=== PATIENT | male | born 1965 | race Caucasian/White ===

== ENCOUNTER 2024-11-04 14:30 | Emergency (ER) | payer OTHER, SELFPAY ==
--- NOTE | ~2024-11-04 | XR_ITS ---
EXAM: XR abdomen/kub 1V DATE: 11/04/2024 15:15 HISTORY: uretheral stone . COMPARISON: CT abdomen pelvis 11/04/2024. FINDINGS: Clear lung bases. Normal bowel gas pattern. No organomegaly. Punctate left upper pole and 9 mm left lower pole calcifications. Known punctate right lower pole calcification not visible radiog raphically. 5 mm calcification projecting over the left sacrum in the expected path of the left urete r. Regional bones and soft tissues normal for age. IMPRESSION: 5 mm distal left ureteral stone. Reviewed, dictated and finalized at location K.
--- NOTE | ~2024-11-04 | CT_ITS ---
EXAMINATION: CT abdomen pelvis wo con DATE: 11/04/2024 14:47 INDICATION: Urethral stone TECHNIQUE: Computed tomography (CT) of the abdomen and pelvis was performed without intravenous contr ast. The dose-length product was 243.23 mGy-cm. Automated exposure control and iterative reconstructi on technique were employed. COMPARISON: None. FINDINGS: Lung bases unremarkable. Heart size normal. No significant pleural or pericardial effusion. There is a 4 mm distal left ureteral stone with mild left hydronephrosis and periureteral edema. The re is nonobstructing left nephrolithiasis. There is a punctate nonobstructing right renal stone. The liver, spleen, pancreas, adrenal glands and right kidney are unremarkable. No significant vascula r abnormality. No lymphadenopathy. There are small bone islands in the proximal aspect of the right f emur. Mild lumbar spondylosis. No significant vascular abnormality. No lymphadenopathy. Nonobstructiv e bowel gas pattern. Normal appendix. IMPRESSION: 1. Distal left ureteral stone measuring 4 mm with mild hydroureteronephrosis. 2: Bilateral nephrolithiasis. Reviewed, dictated and finalized at location A.
--- NOTE | 2024-11-04 14:38 | ED.ABDPAIN ---
HPI - Abdominal Pain General Chief Complaint: Recheck/Abnormal Lab/Rx <Lizett Austin, BIOMEDICAL ENGINEERING AIDE - Last Filed: 11/04/24 18:23> Stated Complaint: kidney stone <Lizett Austin, BIOMEDICAL ENGINEERING AIDE - Last Filed: 11/04/24 18:23> Time Seen by Provider: 11/04/24 14:35 <Lizett Austin, BIOMEDICAL ENGINEERING AIDE - Last Filed: 11/04/24 18:23> Focused HPI: Patient is a 59-year-old male who presents to the ER with L flank pain. He saw Dr. Perez, urology, in his office. Dr. Perez recommended pt come down to the ER for further evaluation, pain control and a CT scan. Patient denies any recent fevers, burning with urination, or abdominal pain. He does endorse incomplete emptying and hematuria. Patient endorses a history of kidney stones. He denies any other medical history relevant to this ER visit. GENERAL: Well-appearing, well-nourished, and in mild distress d/t pain. HEAD: Normocephalic, atraumatic. CHEST: Clear to auscultation. ?No respiratory distress. + L CVA tenderness HEART: Regular rate and rhythm.? NEURO: ?Alert and oriented x3. Patient screened in triage and initial orders placed.? ?Additional care and disposition to be based upon?diagnostic testing and treatment. <Lizett Parveen Geovanna, BIOMEDICAL ENGINEERING AIDE - Last Filed: 11/04/24 18:23> Focused HPI: Patient is a 59-year-old male who presents to the ER with L flank pain. He saw Dr. Perez, urology, in his office. Dr. Perez recommended pt come down to the ER for further evaluation, pain control and a CT scan. Patient denies any recent fevers, burning with urination, or abdominal pain. He does endorse incomplete emptying and hematuria. Patient endorses a history of kidney stones. He denies any other medical history relevant to this ER visit. GENERAL: Well-appearing, well-nourished, and in mild distress d/t pain. HEAD: Normocephalic, atraumatic. CHEST: Clear to auscultation. ?No respiratory distress. + L CVA tenderness HEART: Regular rate and rhythm.? NEURO: ?Alert and oriented x3. Patient screened in triage and initial orders placed.? ?Additional care and disposition to be based upon?diagnostic testing and treatment. <CASSANDRA Crowder Last Filed: 11/04/24 18:38> Source: patient <CASSANDRA Crowder Last Filed: 11/04/24 18:38> Mode of arrival: ambulatory <CASSANDRA Crowder Last Filed: 11/04/24 18:38> Limitations: no limitations <CASSANDRA Crowder Last Filed: 11/04/24 18:38> History of Present Illness HPI narrative: Agree with above HPI <CASSANDRA Crowder Last Filed: 11/04/24 18:38> Related Data Allergies/Adverse Reactions: Allergies Allergy/AdvReac Type Severity Reaction Status Date / Time No Known Allergies Allergy Verified 11/04/24 15:17 <Lizett Austin APRN - Last Filed: 11/04/24 18:23> Review of Systems Review of Systems: All systems reviewed & are unremarkable except as noted in HPI. <Rachelle Espino PA-C - Last Filed: 11/04/24 18:38> All systems reviewed & are unremarkable except as noted in HPI and below <Rachelle Espino PA-C - Last Filed: 11/04/24 18:38> Exam Narrative: GENERAL: Well appearing, well-nourished, non-toxic, in no acute distress. HEAD: Normocephalic, atraumatic. RESPIRATORY: Airway patent, respirations nonlabored. CARDIOVASCULAR: Regular rate and rhythm ABDOMINAL: Soft, nondistended. Normoactive BS. MUSCULOSKELETAL: Moves all extremities. No gross deformities. SKIN: Warm, dry, normal color. NEURO: A&O X3. Speech clear. PSYCHIATRIC: Appropriate mood and affect. Normal interaction. <CASSANDRA Crowder Last Filed: 11/04/24 18:38> Course Vital Signs Vital signs: Vital Signs Temperature 97.3 F L 11/04/24 14:54 Pulse Rate 74 11/04/24 14:54 Respiratory Rate 18 11/04/24 14:54 Blood Pressure 138/74 11/04/24 14:54 Pulse Oximetry 99 11/04/24 14:54 Temperature 97.3 F L 11/04/24 14:54 Pulse Rate 74 11/04/24 14:54 Respiratory Rate 18 11/04/24 14:54 Blood Pressure 138/74 11/04/24 14:54 Pulse Oximetry 99 11/04/24 14:54 <Lizett Austin APRN - Last Filed: 11/04/24 18:23> Vital Signs Temperature 97.3 F L 11/04/24 14:54 Pulse Rate 74 11/04/24 14:54 Respiratory Rate 18 11/04/24 14:54 Blood Pressure 138/74 11/04/24 14:54 Pulse Oximetry 99 11/04/24 14:54 Temperature 97.3 F L 11/04/24 14:54 Pulse Rate 74 11/04/24 14:54 Respiratory Rate 18 11/04/24 14:54 Blood Pressure 138/74 11/04/24 14:54 Pulse Oximetry 99 11/04/24 14:54 <Rachelle Espino PA-C - Last Filed: 11/04/24 18:38> MDM - Abdominal Pain MDM Narrative Medical decision making narrative: Patient presented to ED from urology office with concern for left-sided kidney stone. Has had several day history of left-sided flank pain, hematuria. Does have previous history of kidney stones. Vital signs stable upon arrival. MSE was performed in triage. Laboratory studies are unremarkable. No leukocytosis. Kidney function is stable. UA was ordered, but had not been received yet. CT abdomen pelvis was obtained and showing distal left ureteral stone, 4 mm, with left hydroureteronephrosis. KUB x-ray did visualize stone. Consistent with clinical picture. Patient declined pain medication in the ED. [facility] did speak to Dr. Perez, urology, regarding imaging studies. Advised patient can be admitted for further stone management or discharge home with pain medicine and Flomax. Patient would prefer to go home. Does have a prescription for Flomax at home. Will send pain medication to the pharmacy. Will discharge after urine results. Urine did result with evidence of hematuria, but no signs of infection. Prior to patient receiving official discharge/discharge paperwork, patient left the facility. <Rachelle Espino PA-C - Last Filed: 11/04/24 18:38> Medical Records Attestation: I reviewed the patient's medical records. <Rachelle Espino PA-C - Last Filed: 11/04/24 18:38> Lab Data Attestation: I reviewed the patient's lab results. <Rachelle Espino PA-C - Last Filed: 11/04/24 18:38> Result diagrams: 11/04/24 14:53 11/04/24 14:53 <Lizett Austin APRN - Last Filed: 11/04/24 18:23> Labs: Lab Results 11/04/24 11/04/24 Range/Units 14:53 17:59 WBC 5.7 (4.5-10.0) K/mm3 RBC 4.69 (4.6-6.20) M/mm3 Hgb 14.4 (14.0-18.0) g/dL Hct 41.3 L (42.0-52.0) % MCV 88.1 (80-100) fl MCH 30.7 (26-34) pg MCHC 34.9 (32-36) g/dl RDW 12.2 (11.5-14.5) % Plt Count 126 L (150-375) k/mm3 MPV 8.1 (7.4-10.4) fl Immature Gran % (Auto) 0.2 (0-0.5) % Neut % (Auto) 67.9 (45.5-73.1) % Lymph % (Auto) 22.1 (18.3-44.2) % [place] % (Auto) 6.4 (2.6-8.5) % Eos % (Auto) 2.7 (0-4.4) % Baso % (Auto) 0.7 (0.2-1.2) % Lymph # (Auto) 1.25 (0.9-3.2) K/mm3 [place] # (Auto) 0.4 (0.1-0.6) K/mm3 Eos # (Auto) 0.2 (0-0.3) K/mm3 Baso # (Auto) 0.0 (0.0-0.1) K/mm3 Abs Immat Gran (auto) 0.01 (0.00-0.031) K/mm3 Absolute Neuts (auto) 3.9 (1.3-6.7) K/mm3 Absolute Nucleated RBC 0.000 (0.0-0.012) K/mm3 Nucleated RBC % 0.0 (0.0-0.2) % Sodium 139 (137-145) mmol/L Potassium 4.1 (3.4-5.0) mmol/L Chloride 107 (98-107) mmol/L Carbon Dioxide 21 L (22-30) mmol/L Anion Gap 11 (4-12) mmol/L BUN 15 (9-20) mg/dL Creatinine 1.05 (0.7-1.3) mg/dL Estim Creat Clear Calc Not Reportable Estimated GFR > 60 (59 - ) Glucose 139 H (65-110) mg/dL Calcium 9.2 (8.4-10.2) mg/dL Total Bilirubin 1.4 H (0.2-1.3) mg/dL AST 32 (17-59) U/L ALT 41 (6-50) U/L Alkaline Phosphatase 58 (38-126) U/L Total Protein 8.3 H (6.3-8.2) g/dL Albumin 4.7 (3.5-5.1) g/dL Urine Color Yellow (Yellow) Urine Appearance Clear (Clear) Urine pH 5.5 (5.0-9.0) Ur Specific [place] 1.011 (1.001-1.035) Urine Protein Negative (Negative) mg/dL Urine Glucose (UA) Negative (Negative) mg/dL Urine Ketones Negative (Negative) mg/dL Ur Blood (Man) 3+ H (Negative) Urine Nitrate Negative (Negative) Urine Bilirubin Negative (Negative) Urine Urobilinogen 1.0 (<2.0) mg/dL Leukocyte Esterase Rfl Negative (Negative) DONNA/UL Urine RBC 51-100 H (0-2) /hpf Urine WBC 0-5 (0-3) /hpf Ur Squamous Epith Cells None seen (Few) /hpf Urine Bacteria None seen /hpf Urine Casts 0-2 <Lizett Austin, BIOMEDICAL ENGINEERING AIDE - Last Filed: 11/04/24 18:23> Lab Results 11/04/24 11/04/24 Range/Units 14:53 17:59 WBC 5.7 (4.5-10.0) K/mm3 RBC 4.69 (4.6-6.20) M/mm3 Hgb 14.4 (14.0-18.0) g/dL Hct 41.3 L (42.0-52.0) % MCV 88.1 (80-100) fl MCH 30.7 (26-34) pg MCHC 34.9 (32-36) g/dl RDW 12.2 (11.5-14.5) % Plt Count 126 L (150-375) k/mm3 MPV 8.1 (7.4-10.4) fl Immature Gran % (Auto) 0.2 (0-0.5) % Neut % (Auto) 67.9 (45.5-73.1) % Lymph % (Auto) 22.1 (18.3-44.2) % [place] % (Auto) 6.4 (2.6-8.5) % Eos % (Auto) 2.7 (0-4.4) % Baso % (Auto) 0.7 (0.2-1.2) % Lymph # (Auto) 1.25 (0.9-3.2) K/mm3 [place] # (Auto) 0.4 (0.1-0.6) K/mm3 Eos # (Auto) 0.2 (0-0.3) K/mm3 Baso # (Auto) 0.0 (0.0-0.1) K/mm3 Abs Immat Gran (auto) 0.01 (0.00-0.031) K/mm3 Absolute Neuts (auto) 3.9 (1.3-6.7) K/mm3 Absolute Nucleated RBC 0.000 (0.0-0.012) K/mm3 Nucleated RBC % 0.0 (0.0-0.2) % Sodium 139 (137-145) mmol/L Potassium 4.1 (3.4-5.0) mmol/L Chloride 107 (98-107) mmol/L Carbon Dioxide 21 L (22-30) mmol/L Anion Gap 11 (4-12) mmol/L BUN 15 (9-20) mg/dL Creatinine 1.05 (0.7-1.3) mg/dL Estim Creat Clear Calc Not Reportable Estimated GFR > 60 (59 - ) Glucose 139 H (65-110) mg/dL Calcium 9.2 (8.4-10.2) mg/dL Total Bilirubin 1.4 H (0.2-1.3) mg/dL AST 32 (17-59) U/L ALT 41 (6-50) U/L Alkaline Phosphatase 58 (38-126) U/L Total Protein 8.3 H (6.3-8.2) g/dL Albumin 4.7 (3.5-5.1) g/dL Urine Color Yellow (Yellow) Urine Appearance Clear (Clear) Urine pH 5.5 (5.0-9.0) Ur Specific [place] 1.011 (1.001-1.035) Urine Protein Negative (Negative) mg/dL Urine Glucose (UA) Negative (Negative) mg/dL Urine Ketones Negative (Negative) mg/dL Ur Blood (Man) 3+ H (Negative) Urine Nitrate Negative (Negative) Urine Bilirubin Negative (Negative) Urine Urobilinogen 1.0 (<2.0) mg/dL Leukocyte Esterase Rfl Negative (Negative) DONNA/UL Urine RBC 51-100 H (0-2) /hpf Urine WBC 0-5 (0-3) /hpf Ur Squamous Epith Cells None seen (Few) /hpf Urine Bacteria None seen /hpf Urine Casts 0-2 <Rachelle Espino PA-C - Last Filed: 11/04/24 18:38> Imaging Data Attestation: I personally reviewed and interpreted this imaging study as follows: <Rachelle Espino PA-C - Last Filed: 11/04/24 18:38> Radiologist's impression: ITS Impressions Abdomen/Pelvis CT 11/04/24 14:59 IMPRESSION: 1. Distal left ureteral stone measuring 4 mm with mild hydroureteronephrosis. 2: Bilateral nephrolithiasis. Abdomen X-Ray 11/04/24 15:16 IMPRESSION: 5 mm distal left ureteral stone. <Lizett Austin APRN - Last Filed: 11/04/24 18:23> ITS Impressions Abdomen/Pelvis CT 11/04/24 14:59 IMPRESSION: 1. Distal left ureteral stone measuring 4 mm with mild hydroureteronephrosis. 2: Bilateral nephrolithiasis. Abdomen X-Ray 11/04/24 15:16 IMPRESSION: 5 mm distal left ureteral stone. <Rachelle Espino PA-C - Last Filed: 11/04/24 18:38> Discharge Plan Discharge Clinical Impression: Calculus of distal left ureter <Lizett Austin APRN - Last Filed: 11/04/24 18:23> Patient Disposition: Home <Lizett Austin APRN - Last Filed: 11/04/24 18:23> Condition: Stable <Lizett Austin APRN - Last Filed: 11/04/24 18:23> Instructions: Antibiotic Form, Kidney Stones (ED), How to Strain Your Urine (ED) <Lizett Austin APRN - Last Filed: 11/04/24 18:23> Additional Instructions: Take Flomax daily as prescribed. Continue Tylenol and Ibuprofen as needed for pain. [place] as needed for more severe pain. Zofran for nausea. Stay well hydrated. Strain urine to collect stone. Call your PCP / Urology in the morning to make a follow-up appointment for further care. Return to the ED if you experience worsening or severe pain, unable to keep down food/drink, fevers, uncontrollable nausea/vomiting, unable to urinate, or any other symptoms of concern. <Lizett Austin APRN - Last Filed: 11/04/24 18:23> Patient Language: Afghan <Lizett Austin APRN - Last Filed: 11/04/24 18:23> Prescriptions: New hydrocodone-acetaminophen 5-325 mg tablet 1 tablet PO Q6H PRN (Reason: pain) Qty: 15 0RF <Lizett Austin APRN - Last Filed: 11/04/24 18:23> Follow-up/Referrals: Olayinka Perez MD [Physician] - (UROLOGY) PHYSICIAN NOT ON STAFF,NONSTAFF [Primary Care Provider] - <Lizett Austin APRN - Last Filed: 11/04/24 18:23> Time of Disposition: 18:27 <Lizett Austin APRN - Last Filed: 11/04/24 18:23> 18:27 <Rachelle Espino PA-C - Last Filed: 11/04/24 18:38>
[2024-11-04] MEDS: TAMSULOSIN HCL 0.4 MG CAPSULE PO (14:48)
[2024-11-04] MEDS: Please add drug allergy info to patient profile. 1 EACH XX (14:48)
[2024-11-04 14:54] VITALS: BP 138/74; PULSE 74; RESP 18; TEMP 36.3; O2SAT 99
[2024-11-04 14:59] LABS: Hematocrit 41.3 % (42.0-52.0); Hemoglobin 14.4 g/dL (14.0-18.0); Immature Granulocyte Percent A 0.2 % (0-0.5); Lymphocytes Absolute Auto 1.25 K/mm3 (0.9-3.2); Mean Corpuscular HGB Conc 34.9 g/dl (32-36); Mean Corpuscular Hemoglobin 30.7 pg (26-34); Mean Corpuscular Volume 88.1 fl (80-100); Nucleated Red Blood Cells Absolute Auto 0.000 K/mm3 (0.0-0.012); Nucleated Red Blood Cells Perc 0.0 % (0.0-0.2); Platelet Count Result 126 k/mm3 (150-375); Red Blood Count 4.69 M/mm3 (4.6-6.20); White Blood Count 5.7 K/mm3 (4.5-10.0)
[2024-11-04 15:09] LABS: Alanine Aminotransferase 41 U/L (6-50); Albumin Level 4.7 g/dL (3.5-5.1); Alkaline Phosphatase 58 U/L (38-126); Anion Gap 11 mmol/L (4-12); Aspartate Amino Transferase 32 U/L (17-59); Bilirubin,Total 1.4 mg/dL (0.2-1.3); Blood Urea Nitrogen 15 mg/dL (9-20); Calcium 9.2 mg/dL (8.4-10.2); Carbon Dioxide 21 mmol/L (22-30); Chloride 107 mmol/L (98-107); Estimated Glomerular Filt Rate > 60; Glucose 139 mg/dL (65-110); Potassium 4.1 mmol/L (3.4-5.0); Sodium 139 mmol/L (137-145); Total Protein 8.3 g/dL (6.3-8.2)
--- OUTSIDE RECORDS SUMMARY | 2024-11-04 18:05 | XMS_ITS | Clinical Summary ---
Author Organization [facility] Address [address] [place] [address] Care Team Providers Care Rat Poisoner Name Role Phone John Khan MD Primary Care Provider + Allergies No known active allergies Medications No known medications Active Problems No known active problems Encounters Date Type Department Care Team Description 11/04/[address] [address] Deidra Payne RN 11/03/2024 1:49 PM CDT - 11/03/2024 4:57 PM CDT Emergency [address] [address] Discharge Disposition: Left Against Medical Advice from Last 3 Months Surgical History Surgery Date Site/Laterality Comments SKIN LESION EXCISION 05/05/2020 excision skin lesion chin Social History Tobacco Use Types Packs/Day Years Used Date Smoking Tobacco: Never Smokeless Tobacco: Current Chew Personal Safety Answer Date Recorded Have you ever been in or are you currently in a harmful physical or emotional relationship or is someone making you feel afraid or unsafe? 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 Gender Identity Not on file Sexual Orientation Not on file Obstetrics History Last Filed Vital Signs Vital Sign Reading Time Taken Comments Blood Pressure 133/88 11/03/2024 3:45 PM CDT Pulse 76 11/03/2024 3:45 PM CDT Temperature 37.1 C (98.8 F) 11/03/2024 1:51 PM CDT Respiratory Rate 20 11/03/2024 3:45 PM CDT Oxygen Saturation 98% 11/03/2024 3:45 PM CDT Inhaled Oxygen Concentration - - Weight 90.7 kg (200 lb) 11/03/2024 1:51 PM CDT Height 172 cm (5' 7.72) 08/31/2020 7:07 PM CDT Body Mass Index 30.66 08/31/2020 7:07 PM CDT Plan of Treatment Health Maintenance Due Date Last Done Comments Colon Cancer Screening-Colonoscopy 1965 Depression Screening 1965 Hepatitis C Screening 1965 Prostate Cancer Screening-PSA 1965 DTaP/Tdap/Td Vaccine (1 - Tdap) 1976 Hepatitis B Screening 1983 Regular Well Visit/Exam 18-64 1983 Zoster Vaccine (1 of 2) 2015 Covid-19 Vaccine ( season) 2023 01/30/2023, 11/01/2021, 01/25/2021, Additional history exists Influenza Vaccine (#1) 2024 01/30/2023 Pneumococcal vaccine <65 Aged Out No longer eligible based on patient's age to complete this topic Procedures Procedure Name Priority Date/Time Associated Diagnosis Comments URINALYSIS, MICROSCOPIC ONLY STAT 11/03/2024 2:13 PM CDT URINALYSIS AND REFLEX TO MICROSCOPIC AND CULTURE STAT 11/03/2024 2:13 PM CDT EGFR STAT 11/03/2024 2:11 PM CDT DIFFERENTIAL AUTO STAT 11/03/2024 2:1 1 PM CDT LIPASE STAT 11/03/2024 2:11 PM CDT COMPREHENSIVE METABOLIC PANEL STAT 11/03/2024 2:11 PM CDT CBC WITH AUTO DIFFERENTIAL STAT 11/03/2024 2:11 PM CDT from Last 3 Months Results * (ABNORMAL) Urinalysis reflex to microscopic and culture Urine (11/03/2024 2:13 PM CDT) Color, ur Yellow Yellow Clarity, ur Clear Clear [facility] Specific gravity, ur 1.023 1.003 - 1.030 [facility] pH, urine 5.5 [facility] Comment: Interpretive Data U rine pH is affected by diet, medications, systemic acid-base disturbances, and renal tubular function. pH may affect urinary stone formation. For example, urine pH below 6.0 may help reduce the tendency for calcium phosphate stones and pH greater than 6.0 may reduce the tendency for uric acid stone formation. Source: [facility] Current Interpretive Data was last revised on 2017 Protein, ur ql Negative Negative [facility] Glucose, ur ql Negative Negative [facility] Ketones, ur Negative Negative [facility] Bilirubin, ur Negative Negative [facility] Blood, ur 3+(A) Negative [facility] Urobilinogen, ur <2.0 <2.0 mg/dL [facility] Nitrite, ur Negative Negative [facility] Leukocyte esterase, ur Negative Negative [facility] UA reflex comment Reflex to microscopic UA will be performed. [facility] Urine 11/03/2024 2:13 PM CDT 11/03/2024 2:34 PM CDT Scotty Kelley NP LAB MICROBIOLOGY - GENERAL ORDER CECI Final Result [place] [id number] [facility] Department [place] [address] * (ABNORMAL) Urinalysis, microscopic only (11/03/2024 2:13 PM CDT) WBC, ur 0-5 0 - 5 /HPF RBC, ur >50(A) 0 - 2 /HPF [facility] Mucous, ur Present(A) [facility] Culture Reflex Comment Reflex conditions for urine culture (WBC >10) not met. [facility] Urine 11/03/2024 2:13 PM CDT 11/03/2024 2:34 PM CDT Scotty Kelley NP LAB URINE ORDERABLES Final Resul t Performing Organization Address City/[facility] Co de Phone Number TIMO [address] [place] [address] * eGFR (11/03/2024 2:11 PM CDT) Pathologist [facility] eGFR 76 >=60 mL/min/1. 73 m2 Comment: Interpretive Data Reference Interval Normal >/= 90 mL/min/1.73m2 Mildly decreased* 60 - 89 mL/min/1.73m2 Mildly to moderately decreased 45 - 59 mL/min/1.73m2 Moderately to severely decreased 30 - 44 mL/min/1.73m2 Severely decreased 15 - 29 mL/min/1.73m2 Kidney Failure < 15 mL/min/1.73m2 *Relative to young adult level Estimated glomerular filtration rate is determined by the 2020 CKD-EPI equation recommended by the National Kidney Foundation (A Unifying Approach to GFR Estimation: Recommendations of the NKF-ASK Task Force on Reassessing the Inclusion of Race in Diagnosing Kidney Disease, JASN 2020). The CKD-EPI equation should not be used for patients with unstable renal function and has not been validated in children and those over 70. Current interpretive data was last reviewed 2021. Blood 11/03/2024 2:11 PM CDT 11/03/2024 2:34 PM CDT Scotty Kelley NP LAB BLOOD ORDERABLES Final Resul t Performing Organization Address City/[facility]/ZIP Co de Phone Number TIMO [address] [place] [address] * Differential, auto (11/03/2024 2:11 PM CDT) Pathologist [facility] Neutrophil abs 3.60 1.50 - 6.50 K/cumm Imm gran abs 0.02 0.00 - 0.10 K/cumm [facility] Lymphocyte abs 1.54 0.80 - 3.30 K/cumm [facility] Monocyte abs 0.34 0.20 - 0.80 K/cumm [facility] Eosinophil abs 0.16 0.00 - 0.50 K/cumm [facility] Basophil abs 0.06 0.00 - 0.10 K/cumm [facility] Neutrophil pct 63.1 % [facility] Comment: Interpretive Data Percent cell count reference ranges are not reported, since discordance with absolute values may lead to misinterpretation of CBC data. Current Interpretive Data was last revised on 2017. Imm gran pct 0.3 % [facility] Comment: Interpretive Data Percent cell count reference ranges are not reported, since discordance with absolute values may lead to misinterpretation of CBC data. Current Interpretive Data was last revised on 2017. Lymphocyte pct 26.9 % [facility] Comment: Interpretive Data Percent cell count reference ranges are not reported, since discordance with absolute values may lead to misinterpretation of CBC data. Current Interpretive Data was last revised on 2017. Monocyte pct 5.9 % [facility] Comment: Interpretive Data Percent cell count reference ranges are not reported, since discordance with absolute values may lead to misinterpretation of CBC data. Current Interpretive Data was last revised on 2017. Eosinophil pct 2.8 % [facility] Comment: Interpretive Data Percent cell count reference ranges are not reported, since discordance with absolute values may lead to misinterpretation of CBC data. Current Interpretive Data was last revised on 2017. Basophil pct 1.0 % [facility] Comment: Interpretive Data Percent cell count reference ranges are not reported, since discordance with absolute values may lead to misinterpretation of CBC data. Current Interpretive Data was last revised on 2017. Blood 11/03/2024 2:11 PM CDT 11/03/2024 2:34 PM CDT us Scotty Kelley NP LAB BLOOD ORDERABLES Final Resul t [facility] [address] [facility] [place] [address] * (ABNORMAL) CBC with auto differential (11/03/2024 2:11 PM CDT) WBC 5.72 3.80 - 9.90 K/cumm Hgb 15.5 13.0 - 17.5 g/dL [facility] Hct 43.7 38.9 - 50.3 % [facility] Plt 147(L) 150 - 400 K/cumm [facility] MPV 8.3(L) 9.1 - 12.3 fL [facility] RBC 4.96 4.30 - 5.80 M/cumm [facility] MCV 88.1 81.3 - 96.4 fL [facility] MCH 31.3 27.1 - 33.3 pg [facility] MCHC 35.5 32.3 - 35.7 g/dL [facility] RDW CV 12.4 11.1 - 14.9 % [facility] RDW SD 39.8 35.7 - 48.1 fL [facility] NRBC abs 0.00 0.00 - 0.01 K/cumm [facility] Blood Venous blood specimen / Unknown 11/03/2024 2:11 PM CDT 11/03/2024 2:34 PM CDT [facility] LAB BLOOD ORDERABLES Final Resul t Performing Organization Address [facility] Co de Phone Number [address] [place] [address] * Lipase (11/03/2024 2:11 PM CDT) [facility] Lipase 49 10 - 99 Units/L Blood Venous blood specimen / Unknown 11/03/2024 2:11 PM CDT 11/03/2024 2:34 PM CDT [facility] LAB BLOOD ORDERABLES Final Resul t Performing Organization Address [facility] Co de Phone Number [address] [place] [address] * Comprehensive metabolic panel (11/03/2024 2:11 PM CDT) [facility] Sodium 140 135 - 145 mmol/L Potassium, pl 3.7 3.3 - 4.9 mmol/L [facility] Chloride 105 97 - 110 mmol/L [facility] CO2 23 22 - 32 mmol/L [facility] Anion gap 12 2 - 15 mmol/L [facility] BUN 16 6 - 25 mg/dL [facility] Creatinine 1.12 0.80 - 1.30 mg/dL [facility] Glucose 124 70 - 199 mg/dL [facility] Comment: Interpretive Data Fasting glucose >/= 126 mg/dl is diagnostic for diabetes. Fasting is defined as no caloric intake for at least 8 hours. Fasting glucose between 100 mg/dl to 125 mg/dl is diagnostic of prediabetes. In a patient with classic symptoms of hyperglycemia or hyperglycemic crisis, a random glucose >/= 200 mg/dl is diagnostic for diabetes. In the absence of unequivocal hyperglycemia, results should be confirmed by repeat testing. The classification and Diagnosis of Diabetes Diabetes Care 202; 46: S19-S40. Current interpretive data was last revised 2022. Calcium 9.3 8.5 - 10.3 mg/dL [facility] Bilirubin, total 1.2 0.1 - 1.2 mg/dL [facility] Protein, pl 7.9 6.5 - 8.5 g/dL [facility] Albumin 4.7 3.5 - 5.0 g/dL [facility] Alk phos 60 40 - 130 Units/L [facility] ALT 41 7 - 55 Units/L [facility] AST 27 10 - 50 Units/L [facility] Blood Venous blood specimen / Unknown 11/03/2024 2:11 PM CDT 11/03/2024 2:34 PM CDT us Scotty Kelley NP LAB BLOOD ORDERABLES Final Resul t [facility] [address] [facility] Department of Laboratories [place], [place] [id number] from Last 3 Months Insurance [facility] MEDICAL [facility] H[facility]/PPO Address: [place] [address] [facility] H[facility]/PPO Address: [place] [address] [facility] H[facility]/PPO Address: [place] [address] Care Teams Rat Poisoner Relationship Specialty Start Date End Date John Khan MD PCP - General 11/01/18
--- OUTSIDE RECORDS SUMMARY | 2024-11-04 18:05 | XMS_ITS | Encounter Summary ---
Author Organization [facility] Address [address] [place] [address] Care Team Providers Care Stringer Machine Tender Name Role Phone John Khan MD Primary Care Provider [phone] Encounter Details Date Type Department Care Team (Late st Contact Info) Description 11/04/2024 11:15 AM CDT Hospital Encounter [facility] Diagnostic Imaging [facility] [place] [address] John Khan MD [facility] [place] [address] Arrived Social History Tobacco Use Types Packs/Day Years Used Date Smoking Tobacco: Never Smokeless Tobacco: Never Alcohol Use Standard Drinks/Week Comments Yes 0 (1 standard drink = 0.6 oz pur e alcohol) RARELY Sex and Gender Information Value Date Recorded Sex Assigned at Male 11/04/2024 11:11 AM CDT Legal Sex Male 6:07 PM CDT Gender Identity Not on file Sexual Orientation Not on file documented as of this encounter Plan of Treatment Pending Results Name Type Priority Associated Diagnoses Date /Time XR ABD KUB Imaging Routine Nephrolithiasis 11/04/2024 11:25 AM CDT Scheduled Orders Name Type Priority Associated Diagnoses Orde r Schedule XR ABD KUB Imaging Routine Nephrolithiasis Once for 1 Occurrences starting 11/04/2024 until 11/04/2024 documented as of this encounter Visit Diagnoses Diagnosis Nephrolithiasis Calculus of kidney documented in this encounter Additional Health Concerns Infection Onset Date Last Indicated Resolved Time 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
--- OUTSIDE RECORDS SUMMARY | 2024-11-04 18:05 | XMS_ITS | Encounter Summary ---
Author Organization [facility] Address [address] [place] [address] Care Team Providers Care Algorithm Developer Name Role Phone New Referring, Provider Primary Care Provider Un available John Khan MD Primary Care Provider Encounter Details Date Type Department Care Team (Latest Contact Info) Description 01/28/[address] 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
--- OUTSIDE RECORDS SUMMARY | 2024-11-04 18:05 | XMS_ITS | Encounter Summary ---
Author Organization [facility] Address [address] [place] [address] Care Team Providers Care Permanent Mold Supervisor Name Role Phone John Khan MD Primary Care Provider [phone] Encounter Details Date Type Department Care Team (Latest Contact Info) Description 11/04/2024 Travel Social History Tobacco Use Types Packs/Day Years [...] documented as of this encounter Care Teams Permanent Mold Supervisor Relationship Specialty Start Date End Date John Khan MD [address] [place] [address] PCP - General FAMILY PRACTICE 11/04/24 documented as of this encounter
--- OUTSIDE RECORDS SUMMARY | 2024-11-04 18:05 | XMS_ITS | Patient Health Record ---
Author Organization [facility] Address [address] [place], [place] [id number] Care Team Providers Care Wheat Inspector Name Role Phone DALE OLIVER Unavailable [phone] Reason For Referral No Information Medications Medication SIG (Take, Route, Frequency, Duration) Notes Start Date End Date Status Medrol Dosepak ORAL Medrol DosepakOr iginal MedicationMedrol Dosepak *Reorder from [employer] for eRx and Interaction Alerts* 10/22/2012 Active Plan Of Treatment No Information Insurance Providers Payer Name Payer Address Payer Phone Subscriber Number Group Number Insured Name Patient Relationship to Insured Coverage Start Date Coverage End Date [employer] [employer] [id number] [id number] TAVO MAGAÑA Self - patient is the insured
--- OUTSIDE RECORDS SUMMARY | 2024-11-04 18:05 | XMS_ITS | Clinical Summary ---
Author Organization [facility] Address [address] [place] [address] Care Team Providers Care Cna Ltc Name Role Phone John Khan MD Primary Care Provider [phone] Allergies No known active allergies Medications No known medications Active Problems No known active problems Encounters Date Type Department Care Team Description 11/04/2024 11:15 AM CDT Hospital Encounter [facility] Diagnostic Imaging [address] [facility] [place] [address] John Khan MD Arrived 11/04/2024 Travel from Last 3 Months Family History Relation Status Comments Father Social History Tobacco Use Types Packs/Day Years Used Date Smoking Tobacco: Never Smokeless Tobacco: Never Alcohol Use Standard Drinks/Week Comments Yes 0 (1 standard drink = 0.6 oz pur e alcohol) RARELY Sex and Gender Information Value Date Recorded Sex Assigned at Male 11/04/2024 11:11 AM CDT Legal Sex Male 6:07 PM CDT Gender Identity Not on file Sexual Orientation Not on file Last Filed Vital Signs Vital Sign Reading Time Taken Comments Blood Pressure 140/88 09/05/2017 6:43 PM CDT Pulse 85 09/05/2017 6:43 PM CDT Temperature 36.7 C (98.1 F) 09/05/2017 6:43 PM CDT Respiratory Rate 20 09/05/2017 6:43 PM CDT Oxygen Saturation 97% 09/05/2017 6:43 PM CDT Inhaled Oxygen Concentration - - Weight 102.5 kg (226 lb) 09/05/2017 6:43 PM CDT Height 172.7 cm (5' 8) 09/05/2017 6:43 PM CDT Body Mass Index 34.36 09/05/2017 6:43 PM CDT Plan of Treatment Health Maintenance Due Date Last Done Comments Colorectal Cancer Screening Colonoscopy (10 Years) 1965 Annual Physical 1968 Hepatitis C 1983 DTaP, Tdap and Td Vaccines (1 - Tdap) 1984 Pneumococcal Vaccine: 50+ Years (1 of 1 - PCV) 2015 Zoster Vaccines (1 of 2) 2015 COVID-19 Vaccine (6 - season) 2023 01/30/2023, 11/01/2021, 01/25/2021, Additional history exists Meningococcal B Vaccine Aged Out No l onger eligible based on patient's age to complete this topic Meningococcal Vaccine Aged Out No claudia emma eligible based on patient's age to complete this topic RSV Immunizations Under 20 Months Aged Out No longer eligible based on patient's age to complete this topic Additional Health Concerns Infection Onset Date Last Indicated 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
--- OUTSIDE RECORDS SUMMARY | 2024-11-04 18:05 | XMS_ITS | Encounter Summary ---
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 Deidra Payne RN 11/04/24 1006 documented in this encounter Plan of Treatment Not on file documented as of this encounter Visit Diagnoses Not on filedocumented in this encounter Care Teams Deaf Interpreter Relationship Specialty Start Date End Date John Khan MD PCP - General 11/01/18 documented as of this encounter
--- OUTSIDE RECORDS SUMMARY | 2024-11-04 18:05 | XMS_ITS | Encounter Summary ---
Author Organization [facility] Healthcare Address [address] [place] [address] Care Team Providers Care Hand Tool Lapper Name Role Phone John Khan MD Primary Care Provider + Reason for Visit * Reason Comments Flank Pain Encounter Details Date Type Department Care Team (Late st Contact Info) Description 11/03/2024 1:49 PM CDT - 11/03/2024 4:57 PM CDT Emergency [address] [address] Discharge Disposition: Left Against Medical Advice Social History Tobacco Use Types Packs/Day Years [...] on file Legal Sex Male 6:09 PM [employer] Gender Identity Not on file Sexual Orientation Not on file documented as of this encounter Last Filed Vital Signs Vital Sign Reading Time Taken Comments Blood Pressure 133/88 11/03/2024 3:45 PM CDT Pulse 76 11/03/2024 3:45 PM CDT Temperature 37.1 C (98.8 F) 11/03/2024 1:51 PM CDT Respiratory Rate 20 11/03/2024 3:45 PM CDT Oxygen Saturation 98% 11/03/2024 3:45 PM CDT Inhaled Oxygen Concentration - - Weight 90.7 kg (200 lb) 11/03/2024 1:51 PM CDT Height - - Body Mass Index 30.66 08/31/2020 7:07 PM CDT documented in this encounter Discharge Disposition Disposition Code Departure Means Destination Comment s Left Against Medical Advice Pt said he was leaving. AOx4 documented in this encounter ED Notes * Glen Villar RN - 11/03/2024 1:58 PM CDT Pt c/o left flank pain and blood in urine. X5day. Hx kidney stones. documented in this encounter Plan of Treatment Not on file documented as of this encounter Procedures Procedure Name Priority Date/Time Associated Diagnosis Comments URINALYSIS AND REFLEX TO MICROSCOPIC AND CULTURE STAT 11/03/2024 2:13 PM CDT URINALYSIS, MICROSCOPIC ONLY STAT 11/03/2024 2:13 PM CDT EGFR STAT 11/03/2024 2:11 PM CDT DIFFERENTIAL AUTO STAT 11/03/2024 2:1 1 PM CDT CBC WITH AUTO DIFFERENTIAL STAT 11/03/2024 2:11 PM CDT LIPASE STAT 11/03/2024 2:11 PM CDT COMPREHENSIVE METABOLIC PANEL STAT 11/03/2024 2:11 PM CDT documented in this encounter Results * (ABNORMAL) Urinalysis, microscopic only (11/03/2024 2:13 PM CDT) WBC, ur 0-5 0 - 5 /HPF RBC, ur >50(A) 0 - 2 /HPF TIMO Mucous, ur Present(A) TIMO Culture Reflex Comment Reflex conditions for urine culture (WBC >10) not met. TIMO Urine 11/03/2024 2:13 PM CDT 11/03/2024 2:34 PM CDT Scotty Kelley NP LAB URINE ORDERABLES Final Resul t Performing Organization Address [facility] de Phone Number TIMO [facility] [place] [address] * (ABNORMAL) Urinalysis reflex to microscopic and culture Urine (11/03/2024 2:13 PM CDT) Pathologist [facility] Color, ur Yellow Yellow Clarity, ur Clear Clear [facility] Specific gravity, ur 1.023 1.003 - 1.030 [facility] pH, urine 5.5 [facility] Comment: Interpretive Data U rine pH is affected by diet, medications, systemic acid-base disturbances, and renal tubular function. pH may affect urinary stone formation. For example, urine pH below 6.0 may help reduce the tendency for calcium phosphate stones and pH greater than 6.0 may reduce the tendency for uric acid stone formation. Source: [facility] Current Interpretive Data was last revised on 2017 Protein, ur ql Negative Negative [facility] Glucose, ur ql Negative Negative [facility] Ketones, ur Negative Negative [facility] Bilirubin, ur Negative Negative [facility] Blood, ur 3+(A) Negative [facility] Urobilinogen, ur <2.0 <2.0 mg/dL [facility] Nitrite, ur Negative Negative [facility] Leukocyte esterase, ur Negative Negative [facility] UA reflex comment Reflex to microscopic UA will be performed. [facility] Urine 11/03/2024 2:13 PM CDT 11/03/2024 2:34 PM CDT Scotty Kelley NP LAB MICROBIOLOGY - GENERAL ORDER CECI Final Result Performing Organization Address [facility] Co de Phone Number TIMO [address] [place] [address] * eGFR (11/03/2024 2:11 PM CDT) Pathologist [facility] eGFR 76 >=60 mL/min/1. 73 m2 Comment: [...] NP LAB BLOOD ORDERABLES Final Resul t [place] [id number] [facility] Department [place] [address] * Differential, auto (11/03/2024 2:11 PM CDT) Neutrophil abs 3.60 1.50 - 6.50 K/cumm Imm gran abs 0.02 0.00 - 0.10 K/cumm [facility] Lymphocyte abs 1.54 0.80 - 3.30 K/cumm [facility] Monocyte abs 0.34 0.20 - 0.80 K/cumm [facility] Eosinophil abs 0.16 0.00 - 0.50 K/cumm [facility] Basophil abs 0.06 0.00 - 0.10 K/cumm [facility] Neutrophil pct 63.1 % [facility] Comment: Interpretive Data Percent cell count reference ranges are not reported, since discordance with absolute values may lead to misinterpretation of CBC data. Current Interpretive Data was last revised on 2017. Imm gran pct 0.3 % [facility] Comment: Interpretive Data Percent cell count reference ranges are not reported, since discordance with absolute values may lead to misinterpretation of CBC data. Current Interpretive Data was last revised on 2017. Lymphocyte pct 26.9 % [facility] Comment: Interpretive Data Percent cell count reference ranges are not reported, since discordance with absolute values may lead to misinterpretation of CBC data. Current Interpretive Data was last revised on 2017. Monocyte pct 5.9 % [facility] Comment: Interpretive Data Percent cell count reference ranges are not reported, since discordance with absolute values may lead to misinterpretation of CBC data. Current Interpretive Data was last revised on 2017. Eosinophil pct 2.8 % [facility] Comment: Interpretive Data Percent cell count reference ranges are not reported, since discordance with absolute values may lead to misinterpretation of CBC data. Current Interpretive Data was last revised on 2017. Basophil pct 1.0 % [facility] Comment: Interpretive Data Percent cell count reference ranges are not reported, since discordance with absolute values may lead to misinterpretation of CBC data. Current Interpretive Data was last revised on 2017. Blood 11/03/2024 2:11 PM CDT 11/03/2024 2:34 PM CDT [facility] LAB BLOOD ORDERABLES Final Resul t Performing Organization Address [facility] Co de Phone Number [address] [address] * Lipase (11/03/2024 2:11 PM CDT) Pathologist [facility] Lipase 49 10 - 99 Units/L Blood Venous blood specimen / Unknown 11/03/2024 2:11 PM CDT 11/03/2024 2:34 PM CDT [facility] LAB BLOOD ORDERABLES Final Resul t Performing Organization Address City/[facility] Co de Phone Number [address] [address] * Comprehensive metabolic panel (11/03/2024 2:11 PM CDT) Pathologist [facility] Sodium 140 135 - 145 mmol/L Potassium, pl 3.7 3.3 - 4.9 mmol/L [facility] Chloride 105 97 - 110 mmol/L [facility] CO2 23 22 - 32 mmol/L [facility] Anion gap 12 2 - 15 mmol/L [facility] BUN 16 6 - 25 mg/dL [facility] Creatinine 1.12 0.80 - 1.30 mg/dL [facility] Glucose 124 70 - 199 mg/dL [facility] Comment: Interpretive Data Fasting glucose >/= 126 [...] 2022. Calcium 9.3 8.5 - 10.3 mg/dL [facility] Bilirubin, total 1.2 0.1 - 1.2 mg/dL [facility] Protein, pl 7.9 6.5 - 8.5 g/dL [facility] Albumin 4.7 3.5 - 5.0 g/dL [facility] Alk phos 60 40 - 130 Units/L [facility] ALT 41 7 - 55 Units/L [facility] AST 27 10 - 50 Units/L [facility] Blood Venous blood specimen / Unknown 11/03/2024 2:11 PM CDT 11/03/2024 2:34 PM CDT Scotty Kelley NP LAB BLOOD ORDERABLES Final Resul t [facility] [address] [facility] Department [place] [address] * (ABNORMAL) CBC with auto differential (11/03/2024 2:11 PM CDT) WBC 5.72 3.80 - 9.90 K/cumm Hgb 15.5 13.0 - 17.5 g/dL [facility] Hct 43.7 38.9 - 50.3 % [facility] Plt 147(L) 150 - 400 K/cumm [facility] MPV 8.3(L) 9.1 - 12.3 fL [facility] RBC 4.96 4.30 - 5.80 M/cumm [facility] MCV 88.1 81.3 - 96.4 fL [facility] MCH 31.3 27.1 - 33.3 pg [facility] MCHC 35.5 32.3 - 35.7 g/dL [facility] RDW CV 12.4 11.1 - 14.9 % [facility] RDW SD 39.8 35.7 - 48.1 fL [facility] NRBC abs 0.00 0.00 - 0.01 K/cumm [facility] Blood Venous blood specimen / Unknown 11/03/2024 2:11 PM CDT 11/03/2024 2:34 PM CDT Scotty Kelley [employer]SERV[employer] LAB BLOOD ORDERABLES Final Resul t [place] [id number] [facility] Department [place] [address] documented in this encounter Visit Diagnoses Not on filedocumented in this encounter Active and Recently Administered Medications Orders Medications Ordered That Rosalino ht Not Have Been Administered Count Last Ordered Date First Ordered Date acetaminophen (TYLENOL) tablet 975 mg 1 02/2025 ondansetron ODT (ZOFRAN-ODT) disintegrating tablet 4 mg 1 11/03/2024 documented in this encounter Care Teams Hand Tool Lapper Relationship Specialty Start Date End Date John Khan MD PCP - General 11/01/18 documented as of this encounter
--- OUTSIDE RECORDS SUMMARY | 2024-11-04 18:05 | XMS_ITS | Clinical Summary ---
Author Organization [facility] Address [address] [place] [id number] Care Team Providers Care Coding Advisor Name Role Phone Unavailable Primary Care Provider Unavailabl e Allergies No known active allergies Medications No known medications Active Problems Problem Noted Date Diagnosed Date Right Inferior pubic ramus fracture 01/03/2015 Personal history of fall 01/02/2015 Family History Medical History Relation Name Comments Alzheimer's Disease Mother Relation Name Status Comments Brother Alive Daughter Alive Father Mother Alive Sister Alive Social History Tobacco Use Types Packs/Day Years Used Date Smoking Tobacco: Never Smokeless Tobacco: Current Chew Tobacco Cessation:Ready to Q uit: No; Counseling Given: Yes Alcohol Use Standard Drinks/Week Comments Yes 2 (1 standard drink = 0.6 oz pur e alcohol) couple beers a week Alcohol Use Answer Date Recorded Frequency of Alcohol Consumption Not on file 08/12/2022 Average Number of Drinks Not on file 023 Frequency of Binge Drinking Not on file 07/24 Alcohol Use Status Yes 08/12/2022 Average alcohol consumption Not on file 07/24 Sex and Gender Information Value Date Recorded Sex Assigned at Not on file Legal Sex Male 3:05 PM CDT Gender Identity Not on file Sexual Orientation Not on file Last Filed Vital Signs Vital Sign Reading Time Taken Comments Blood Pressure 132/81 01/05/2015 8:14 AM CDT Pulse 67 01/05/2015 8:14 AM CDT Temperature 36.5 C (97.7 F) 01/05/2015 8:14 AM CDT Respiratory Rate 18 01/05/2015 8:14 AM CDT Oxygen Saturation 98% 01/05/2015 8:14 AM CDT Inhaled Oxygen Concentration - - Weight 108.7 kg (239 lb 10.2 oz) 01/05/2015 3:40 AM CDT Height 174 cm (5' 8.5) 01/02/2015 3:06 PM CDT Body Mass Index 35.91 01/02/2015 3:06 PM CDT Plan of Treatment Health Maintenance Due Date Last Done Comments HIV Screening 1965 Hepatitis C Screening ages 1 8 to 79 once 1965 MMR VACCINES (1 of 1 - Stand cindy series) 1966 YEARLY WELLNESS EXAM 1968 DEPRESSION SCREENING 1977 ADULT TETANUS 1984 HEPATITIS B VACCINES (1 of 3 - 19+ 3-dose series) 1984 LIPID TESTING 2000 Colon Cancer Screening 2010 Zoster Vaccine (Recombinant Vaccine) (1 of 2) 2015 COVID-19 Immunization (1 - 2 season) 2023 Influenza Vaccine 10/23/2024 HEPATITIS A VACCINES Aged Out No long er eligible based on patient's age to complete this topic HIB VACCINES Aged Out No longer eligi ble based on patient's age to complete this topic HPV VACCINES Aged Out No longer eligi ble based on patient's age to complete this topic IPV VACCINES Aged Out No longer eligi ble based on patient's age to complete this topic MENINGOCOCCAL VACCINE Aged Out No claudia emma eligible based on patient's age to complete this topic Meningococcal B Vaccine Aged Out No l onger eligible based on patient's age to complete this topic Pneumococcal Vaccine: Peds t o 50 & At-Risk Patients Aged Out No longer eligible b ased on patient's age to complete this topic ROTAVIRUS VACCINES Aged Out No longer eligible based on patient's age to complete this topic Insurance [address] [place] [address] [employer] Member Subscriber Plan / Payer (Ef fective 2015-Present) Name:Emre Martins Relation to Subscriber:Self Name:Emre Martins Payer ID:[id number] (NAIC) Type:CONTRACTED Address: [address] [place] [id number]
[2024-11-04 18:08] LABS: Add Urine Microscopic? YES; Appearance Urine Clear (Clear); Glucose Urine UA Negative (Negative); Leukocyte Esterase Ur Negative LEU/UL (Negative); Nitrate Urine Negative (Negative); Non Pathogenic Casts 0-2; Specific Grav Ur 1.011 (1.001-1.035)
== END 2024-11-04 18:31 | disposition home or self-care (01) ==
PROVIDERS: Registered Nurse; Emergency Provider Physician Assistant
DX: N20.1 Calculus of ureter (principal)
CPT/HCPCS: 36415; 74018; 74176; 80053; 81001; 85025; 99284; A9270